=== PATIENT | male | born 1985 | race Caucasian/White ===

== ENCOUNTER 2020-04-14 14:20 | Outpatient (CLI) | payer OTHER ==
[2020-04-14] MEDS ORDERED: CART1TAB5 PO (15:12)
[2020-04-14] MEDS ORDERED: CHOL10003 PO (15:12)
[2020-04-14] MEDS ORDERED: MULT-658 PO (15:12)
== END 2020-04-14 23:59 | disposition home or self-care (01) ==
LOC: STAR 14:20
PROVIDERS: ATTEND Otolaryngology
DX: Z02.9 Encounter for administrative examinations, unspecified (principal)

== ENCOUNTER 2020-04-22 05:39 | Day surgery (SDC) | payer OTHER ==
[~2020-04-22] VITALS: Ht 172.7 cm; Wt 83.0 kg
[~2020-04-22 05:39] MED LIST: CART1TAB5 PO; CHOL10003 PO; MULT-658 PO
[2020-04-22] MEDS ORDERED: LACTATED RINGERS 1,000 ML IV SCH (06:04)
[2020-04-22] MEDS ORDERED: CHLORHEXIDINE 15 ML UDC MM ONE (06:30)
[2020-04-22] MEDS ORDERED: OXYMETAZOLINE NASAL SPRAY 0.05%, 15ML ONE (07:12)
[2020-04-22] MEDS ORDERED: MUPIROCIN OINT 2%, 22GM ONE (07:12)
[2020-04-22] MEDS ORDERED: LIDOCAINE 1%-EPI 1:100K, 20ML ONE (07:12)
[2020-04-22] MEDS ORDERED: FENTANYL PF 250 MCG/5ML ONE (07:18)
[2020-04-22] MEDS ORDERED: MIDAZOLAM 1 MG/ML, 2ML ONE (07:18)
[2020-04-22] MEDS ORDERED: DIPHENHYDRAMINE 50 MG/ML, 1ML IVPush PRN (07:30)
[2020-04-22] MEDS ORDERED: HYDROmorphone 1 MG/ML, 1ML INJ IVPush PRN (07:30)
[2020-04-22] MEDS ORDERED: MEPERIDINE/PF 25MG/0.5ML IVPush PRN (07:30)
[2020-04-22] MEDS ORDERED: hydrALAzine 20 MG/ML, 1ML IV PRN (07:30)
[2020-04-22] MEDS ORDERED: PROMETHAZINE 25 MG/ML, 1ML IVPush PRN (07:30)
[2020-04-22] MEDS ORDERED: HALOPERIDOL 5 MG/ML IV PRN (07:30)
[2020-04-22] MEDS ORDERED: LABETALOL 5MG/ML, 20ML IV PRN (07:30)
[2020-04-22] MEDS ORDERED: CEFAZOLIN 1,000 MG ONE (08:32)
[2020-04-22] MEDS ORDERED: ROCURONIUM 10MG/ML,5ML ONE (08:32)
[2020-04-22] MEDS ORDERED: PROPOFOL 10 MG/ML, 20ML ONE (08:32)
[2020-04-22] MEDS ORDERED: DEXAMETHASONE 4 MG/ML, 1ML ONE (08:32)
[2020-04-22] MEDS ORDERED: GLYCOPYRROLATE 0.2MG/1ML, 5ML ONE (08:32)
[2020-04-22] MEDS ORDERED: SUCCINYLCHOLINE 20 MG/ML, 10ML ONE (08:32)
[2020-04-22] MEDS ORDERED: NEOSTIGMINE 1 MG/ML, 10ML ONE (08:32)
[2020-04-22] MEDS ORDERED: ONDANSETRON 2MG/ML, 2ML ONE (08:32)
[2020-04-22] MEDS ORDERED: FENTANYL PF 100 MCG/2ML ONE (09:01)
[2020-04-22] MEDS ORDERED: OXYcodone 5 MG/5 ML ORAL.SOL UDC ONE (09:01)
[2020-04-22] MEDS: FENTANYL PF 100 MCG/2ML IV PRN ×2 (09:03→09:16)
[2020-04-22] MEDS: OXYcodone 5 MG/5 ML ORAL.SOL UDC PO PRN ×2 (09:04→10:31)
== END 2020-04-22 11:05 | disposition home or self-care (01) ==
LOC: OUT 05:39
PROVIDERS: ATTEND Otolaryngology
DX: J34.2 Deviated nasal septum (principal); Z11.59 Encounter for screening for other viral diseases; J34.3 Hypertrophy of nasal turbinates; J32.4 Chronic pansinusitis; Z88.5 Allergy status to narcotic agent
CPT/HCPCS: 30520; 30802; 31253; 31256; 31257; 88304; 88311; J0330; J0690; J1100; J2250; J2405; J2704; J3010; J3490; J7120; U0001; J2710